=== PATIENT | male | born 1955 | race Caucasian/White ===

== ENCOUNTER 2024-05-24 09:55 | Inpatient (IN) ==
[~2024-05-24 09:55] MED LIST: Metoclopramide 5 MG/ML VIAL (10 mg) IV PRN; NS 0.45% 1000 ml BAG 1,000 ML IV SCH; Naloxone 0.4 mg VIAL 0.4 mg/ml 1 ml VIAL IV PRN; Ondansetron 4 mg VIAL 2 MG/ML 2 ml VIAL IV PRN
[2024-05-24] MEDS ORDERED: Scopolamine 1 mg/72hr PATCH ONE (10:28)
[2024-05-24] MEDS ORDERED: ceFAZolin 1 GM in Dextrose 2 GM/100 ML BAG ONE (10:29)
[2024-05-24] MEDS ORDERED: Tranexamic Acid 1 GM/100ML BAG 2,000 MG/200 ML BAG IV ONE (10:29)
[2024-05-24] MEDS: Lactated Ringers 1000 ml BAG 1,000 ML IV SCH ×2 (10:48→16:41)
[2024-05-24 11:16] LABS: Rapid COVID-19 Molecular Undetected (Undetected)
[2024-05-24] MEDS ORDERED: ROPIVACAINE 5 MG/ML 30 ML BTL (0.5%) ONE (11:49)
[2024-05-24] MEDS ORDERED: Midazolam 2 mg/2 ml VIAL 1 mg/ml 2 ml VIAL (2 mg) ONE (12:01)
[2024-05-24] MEDS ORDERED: fentaNYL 250 mcg/5 ml 50 MCG/ML 5 ml VIAL (250 MCG) ONE (12:10)
[2024-05-24] MEDS ORDERED: Rocuronium 50 mg VIAL 10 mg/ml 5 ml VIAL (50 mg) ONE (12:10)
[2024-05-24] MEDS ORDERED: Propofol 10 MG/ML 20 ML BTL ONE (12:10)
[2024-05-24] MEDS ORDERED: Ondansetron 4 mg VIAL 2 MG/ML 2 ml VIAL ONE (12:37)
[2024-05-24] MEDS ORDERED: Dexamethasone IV 4 MG/ML VIAL 1 ml VIAL ONE (12:37)
[2024-05-24] MEDS ORDERED: HYDROmorphone 0.5 MG/0.5 ML SYRINGE ONE (12:45)
[2024-05-24] MEDS ORDERED: Phenylephrine 40 mcg/mL 10mL (400mcg) SYRINGE ONE (13:46)
[2024-05-24] MEDS ORDERED: Ondansetron ODT 4 mg TAB 4 MG TAB PO PRN (15:08)
[2024-05-24] MEDS ORDERED: Calcium Carb (TUMS) 500 mg CHEW TAB PO PRN (15:08)
[2024-05-24] MEDS ORDERED: Magnesium Hydroxide LIQ 30 ML UDC PO PRN (15:08)
[2024-05-24] MEDS ORDERED: Lactulose 30 ml UDC PO PRN (15:08)
[2024-05-24] MEDS ORDERED: fentaNYL 100 mcg/2 ml 50 MCG/ML VIAL ONE (15:18)
[2024-05-24] MEDS: fentaNYL 100 mcg/2 ml 50 MCG/ML VIAL IV PRN (15:19)
[2024-05-24] MEDS: Morphine 2 MG/ML SYRINGE IV PRN ×2 (16:36→22:25)
[2024-05-24] MEDS: Ondansetron 4 mg VIAL 2 MG/ML 2 ml VIAL IV PRN (16:39)
[2024-05-24] MEDS: Buffered Lidocaine 1% SYRIN 1 ml INTRADERM ONE (16:42)
[2024-05-24] MEDS: Scopolamine 1 mg/72hr PATCH TRANSDERM ONE (16:42)
[2024-05-24] MEDS: Acetaminophen IV 1 GM/100ML 1,000 MG/100 ML BAG IV ONE (16:42)
[2024-05-24] MEDS: Ondansetron 4 mg VIAL 2 MG/ML 2 ml VIAL ONE (16:43)
[2024-05-24] MEDS ORDERED: Albuterol HFA INHALER 8 gm MDI INH PRN (17:18)
[2024-05-24] MEDS: ceFAZolin 2 GM in NS PREMIX 2 GM/100 ML BAG IVPB SCH (22:19)
[2024-05-24] MEDS: Magnesium Hydroxide LIQ 30 ML UDC PO SCH (22:27)
[2024-05-24] MEDS: Fluticasone NASAL SPRAY 50MCG 16 gm SPRAY BTL INTRANASAL SCH (22:34)
[2024-05-25 06:00] LABS: Hematocrit 39.2 % (38-53); Hemoglobin 13.2 g/dL (13.2-16.3); Mean Platelet Volume 8.7 fL (7.5-11.2); Platelet Count 179 10^3/uL (150-450)
[2024-05-25 06:52] LABS: Calcium 8.6 mg/dL (8.6-10.3); Creatinine, Serum 0.8 mg/dL (0.67-1.17); Potassium 4.1 mmol/L (3.5-5.0); eGFR CKD-EPI 97.6 (>60)
[2024-05-25] MEDS: Vitamin THERAPEUTIC TAB PO SCH (07:51)
[2024-05-25] MEDS: Albuterol/Ipratropium NEB.SOL (2.5/0.5 MG) 3 ML NEB.SOLN INH PRN (07:52)
[2024-05-25] MEDS: FLUTICAS/UMECLI/VILANT 200-62.5-25 MDI (NF) INH SCH (07:52)
[2024-05-26 05:43] LABS: Hematocrit 38.9 % (38-53); Hemoglobin 13.4 g/dL (13.2-16.3); Mean Platelet Volume 8.6 fL (7.5-11.2); Platelet Count 157 10^3/uL (150-450)
[2024-05-26 11:48] LABS: Albumin 3.5 g/dL (3.2-5.2); Albumin/Globulin Ratio 1.3 (1-3); Calcium 8.3 mg/dL (8.6-10.3); Creatinine, Serum 0.76 mg/dL (0.67-1.17); Globulin 2.6 g/dL (2-4); Potassium 3.6 mmol/L (3.5-5.0); Total Bilirubin 0.7 mg/dL (0.2-1.0); Total Protein 6.1 g/dL (6.4-8.9); eGFR CKD-EPI 99.1 (>60)
[2024-05-26] MEDS: Iodixanol (CONTRAST) 320 MG/ML 100 ML SDV IV ONE (11:52)
[2024-05-27 07:03] LABS: ABS Basophils 0.1 10^3/uL (0.0-0.1); ABS Eosinophils 0.2 10^3/uL (0.0-0.5); ABS Lymphocytes 1.3 10^3/uL (1.0-4.8); ABS Monocytes 0.8 10^3/uL (0.0-1.1); ABS Neutrophils 7.7 10^3/uL (1.5-7.6); Eosinophil % 2.2 %; Hematocrit 36.9 % (38-53); Hemoglobin 12.7 g/dL (13.2-16.3); Lymphocyte % 12.9 %; Mean Corpuscular Hemoglobin 31.9 pg (27-33); Mean Corpuscular Hgb Conc 34.5 g/dL (31-36); Mean Corpuscular Volume 92.6 fL (80-97); Mean Platelet Volume 8.5 fL (7.5-11.2); Platelet Count 157 10^3/uL (150-450); Red Blood Count 3.99 10^6/uL (4.06-5.63); Red Cell Distribution Width 13.9 % (12-17); White Blood Count 10.2 10^3/uL (3.6-10.2)
[2024-05-27 07:20] LABS: Albumin 3.5 g/dL (3.2-5.2); Albumin/Globulin Ratio 1.3 (1-3); Calcium 8.3 mg/dL (8.6-10.3); Creatinine, Serum 0.73 mg/dL (0.67-1.17); Direct Bilirubin 0.1 mg/dL (0.03-0.18); Globulin 2.8 g/dL (2-4); Indirect Bilirubin 0.7 mg/dL (0.3-1.0); Potassium 3.7 mmol/L (3.5-5.0); Total Bilirubin 0.8 mg/dL (0.2-1.0); Total Protein 6.3 g/dL (6.4-8.9); eGFR CKD-EPI 100.3 (>60)
[2024-05-28 05:58] LABS: Hematocrit 38.4 % (38-53); Mean Platelet Volume 8.8 fL (7.5-11.2); Platelet Count 203 10^3/uL (150-450)
[2024-05-28 10:27] VITALS: BP 108/69
[2024-05-28 10:27] LABS: Rapid COVID-19 Molecular Undetected (Undetected)
== END 2024-05-28 11:26 | DRG 470 ==
LOC: SSU 09:55 → OR 09:55 → EDSTATUS 11:45 → SUATTDRO 16:31
PROVIDERS: ADMIT Orthopaedic Surgery Adult Reconstructive Orthopaedic Surgery; ATTEND Orthopaedic Surgery Adult Reconstructive Orthopaedic Surgery